=== PATIENT | female | born 1940 | race Caucasian/White ===

== ENCOUNTER 2020-07-07 10:43 | Outpatient (CLI) | payer MEDICARE ==
[2020-07-07 12:28] LABS: Anion Gap 14 mmol/L (10-20); BUN (Urea Nitrogen) 13 mg/dL (9.8-20.1); Calc. Creatinine Clearance 0 mL/min (70-130); Carbon Dioxide 26 mmol/L (23-31); Chloride 107 mmol/L (98-107); Glucose 99 mg/dL (83-110); Potassium 3.7 mmol/L (3.5-5.1); Sodium 143 mmol/L (136-145)
== END 2020-07-07 10:44 | disposition home or self-care (01) ==
LOC: LABBT 10:43
PROVIDERS: ATTEND Neurological Surgery
DX: Z01.812 Encounter for preprocedural laboratory examination (principal); M48.061 Spinal stenosis, lumbar region without neurogenic claudication; S33.100A Subluxation of unspecified lumbar vertebra, initial encounter
CPT/HCPCS: 80048

== ENCOUNTER 2020-07-10 10:26 | Observation (INO) | payer MEDICARE ==
[2020-07-07 12:18] LABS: Hemoglobin 12.5 g/dL (12.0-15.5); Mean Corpuscular HGB CONC 32.3 g/dL (32.0-36.0); Mean Corpuscular Hemoglobin 32.4 pg (27.0-33.0); Mean Corpuscular Volume 100.3 fl (81.6-98.3); Platelet Count 281 10x3/uL (150-450); RBC Distribution Width 12.6 % (11.5-14.5); Red Blood Cell (RBC) Count 3.86 10x6/uL (3.90-5.03); White Blood Cell (WBC) Count 8.9 10x3/uL (3.5-10.5)
[2020-07-07 12:43] LABS: Prothrombin Time 11.3 sec (9.5-12.1)
[2020-07-08 01:17] LABS: SARS-CoV-2 PCR by NAA Not Detected (NotDetected)
[2020-07-10] MEDS ORDERED: Bupivacaine PF 0.5% 30 ML VIAL ONE (11:53)
[2020-07-10] MEDS ORDERED: EPINEPHrine 1 MG/ML AMP ONE (11:53)
[2020-07-10] MEDS ORDERED: Thrombin 5000 UNITS/5 ML VIAL ONE ×2 (11:53→11:54)
[2020-07-10] MEDS ORDERED: SUGAMMADEX SODIUM 200 MG/2 ML VIAL ONE (11:59)
[2020-07-10] MEDS ORDERED: Fentanyl 100 MCG/2 ML VIAL ONE ×3 (12:14→15:52)
[2020-07-10] MEDS ORDERED: Ketamine 50 MG/ML (10ML VIAL) ONE (12:16)
[2020-07-10] MEDS ORDERED: Rocuronium Bromide 10 MG/ML (10ML VIAL) ONE (12:24)
[2020-07-10] MEDS ORDERED: ePHEDrine Sulfate 50 MG/10 ML VIAL ONE (12:24)
[2020-07-10] MEDS ORDERED: PROPOFOL 200 MG/20 ML VIAL ONE (12:24)
[2020-07-10] MEDS ORDERED: Lidocaine 1% PF 5 ML VIAL ONE (12:24)
[2020-07-10] MEDS ORDERED: Ondansetron PF 4 MG/2 ML Vial ONE (12:24)
[2020-07-10] MEDS ORDERED: Dexamethasone 20 MG/5 ML VIAL ONE (12:24)
[2020-07-10] MEDS ORDERED: Phenylephrine 10 MG/ML VIAL ONE (13:36)
[2020-07-10] MEDS ORDERED: HYDROmorphone 2 MG/ML VIAL SLOW IVP PRN (13:48)
[2020-07-10] MEDS ORDERED: Ondansetron HCl/PF 4 MG/2 ML Vial IVP PRN (13:48)
[2020-07-10] MEDS ORDERED: Promethazine HCl 25 MG/ML VIAL IM PRN (15:49)
[2020-07-10] MEDS ORDERED: Bisacodyl 10 MG SUPP PR PRN (15:49)
[2020-07-10] MEDS ORDERED: Acetaminophen/Codeine 30-300mg Tablet PO PRN (15:49)
[2020-07-10] MEDS ORDERED: HYDROcodone/Acetaminophen 7.5/325 mg Tablet PO PRN (15:49)
[2020-07-10] MEDS ORDERED: tiZANidine HCl 4 MG TAB PO PRN (15:49)
[2020-07-10] MEDS ORDERED: Promethazine 25 MG TAB PO PRN (15:49)
[2020-07-10] MEDS ORDERED: Milk Of Magnesia 30 ML UDCUP PO PRN (15:49)
[2020-07-10] MEDS ORDERED: Promethazine HCl 12.5 MG SUPP PR PRN (15:49)
[2020-07-10] MEDS ORDERED: Morphine 4 MG/ML VIAL SLOW IVP PRN (15:58)
[2020-07-10] MEDS ORDERED: Scopolamine 1.5 mg/72 hour Patch TD SCH (16:00)
[2020-07-10] MEDS: Sodium Chloride 0.9% 1,000 ML IV SCH (17:05)
[2020-07-10] MEDS: HYDROcodone/Acetaminophen 7.5/325 mg Tablet PO PRN ×2 (17:21→21:14)
[2020-07-10] MEDS: Ondansetron PF 4 MG/2 ML Vial IVP PRN ×2 (17:58→23:00)
[2020-07-10 18:11] VITALS: BMI 24.7
[2020-07-10] MEDS: Acetaminophen/Codeine 30-300mg Tablet PO PRN (18:46)
[2020-07-10] MEDS: CEFAZOLIN 2 GM in Premix Bag 1 BAG IVPB SCH (20:58)
[2020-07-11] MEDS: Sodium Chloride 0.9% 1,000 ML IV SCH ×2 (04:10→14:52)
[2020-07-11] MEDS: CEFAZOLIN 2 GM in Premix Bag 1 BAG IVPB SCH ×3 (04:10→20:58)
[2020-07-11] MEDS: HYDROcodone/Acetaminophen 7.5/325 mg Tablet PO PRN ×4 (04:28→22:42)
[2020-07-11 06:24] LABS: #Basophils 0.1 thou/uL (0.0-0.2); #Lymphocytes 1.5 thou/uL (1.20-3.40); #Monocytes 0.8 thou/uL (0.11-0.59); #Neutrophils 14.7 thou/uL (1.40-6.50); %Basophils 0.6 % (0.0-1.0); %Lymphocytes 8.8 % (21.0-51.0); %Monocytes 4.5 % (0.0-10.0); %Neutrophils 86.1 % (42.0-75.0); Hemoglobin 9.3 g/dL (12.0-16.0); Mean Corpuscular HGB CONC 33.2 g/dL (32.0-36.0); Mean Corpuscular Hemoglobin 34.5 pg (27.0-31.0); Mean Platelet Volume 8.6 fL (7.4-10.4); Platelet Count 234 thou/uL (130-400); RBC Distribution Width 11.3 % (11.5-14.5); Red Blood Cell (RBC) Count 2.68 mill/uL (4.20-5.40); White Blood Cell (WBC) Count 17.1 thou/uL (4.8-10.8)
[2020-07-11] MEDS: Losartan 25 MG TAB PO SCH (08:37)
[2020-07-11] MEDS: Ondansetron ODT 4 MG TAB PO PRN (14:58)
[2020-07-12] MEDS: CEFAZOLIN 2 GM in Premix Bag 1 BAG IVPB SCH ×2 (04:15→11:59)
[2020-07-12] MEDS: Ondansetron PF 4 MG/2 ML Vial IVP PRN (04:25)
[2020-07-12 06:09] LABS: #Eosinphils 0.1 thou/uL (0.0-0.7); #Lymphocytes 3.1 thou/uL (1.20-3.40); #Neutrophils 11.6 thou/uL (1.40-6.50); %Basophils 0.2 % (0.0-1.0); %Eosinophils 0.8 % (0.0-10.0); %Lymphocytes 19.6 % (21.0-51.0); %Monocytes 6.1 % (0.0-10.0); %Neutrophils 73.4 % (42.0-75.0); Hemoglobin 8.6 g/dL (12.0-16.0); Mean Corpuscular HGB CONC 33.3 g/dL (32.0-36.0); Mean Platelet Volume 8.1 fL (7.4-10.4); Platelet Count 238 thou/uL (130-400); RBC Distribution Width 11.4 % (11.5-14.5); Red Blood Cell (RBC) Count 2.46 mill/uL (4.20-5.40); White Blood Cell (WBC) Count 15.8 thou/uL (4.8-10.8)
[2020-07-12 06:34] LABS: Anion Gap 10 mmol/L (10-20); Calc. Creatinine Clearance 60 mL/min (70-130); Carbon Dioxide 28 mmol/L (23-31); Chloride 103 mmol/L (98-107); Glucose 100 mg/dL (83-110); Potassium 3.2 mmol/L (3.5-5.1); Sodium 138 mmol/L (136-145)
[2020-07-12 07:30] LABS: BUN (Urea Nitrogen) 11 mg/dL (9.8-20.1)
[2020-07-12] MEDS: Losartan 25 MG TAB PO SCH (08:30)
[2020-07-12] MEDS: Sodium Chloride 0.9% 1,000 ML IV SCH ×2 (09:50→22:02)
[2020-07-12] MEDS: Acetaminophen/Codeine 30-300mg Tablet PO PRN (14:48)
[2020-07-12] MEDS: Ondansetron ODT 4 MG TAB PO PRN ×2 (14:49→22:06)
[2020-07-12] MEDS ORDERED: Potassium Chloride 20 MEQ TAB PO SCH (15:00)
[2020-07-13 08:16] VITALS: BP 127/69; TEMP 98.2
[2020-07-13] MEDS: Ondansetron ODT 4 MG TAB PO PRN (08:46)
[2020-07-13] MEDS: Acetaminophen/Codeine 30-300mg Tablet PO PRN (08:46)
[2020-07-13] MEDS: Losartan 25 MG TAB PO SCH (08:47)
== END 2020-07-13 11:09 | disposition home or self-care (01) ==
LOC: SDC 10:26 → SURG A 15:49
PROVIDERS: ADMIT Neurological Surgery; ATTEND Neurological Surgery
PROC: 01NB0ZZ Release Lumbar Nerve, Open Approach (ICD-10-PCS; principal; 2020-07-10)
DX: M48.062 Spinal stenosis, lumbar region with neurogenic claudication (principal); M43.16 Spondylolisthesis, lumbar region; M99.23 Subluxation stenosis of neural canal of lumbar region; D62 Acute posthemorrhagic anemia; E87.6 Hypokalemia; I10 Essential (primary) hypertension; M19.90 Unspecified osteoarthritis, unspecified site; Z79.82 Long term (current) use of aspirin; Z79.899 Other long term (current) drug therapy; Z88.2 Allergy status to sulfonamides; Z90.710 Acquired absence of both cervix and uterus
CPT/HCPCS: 63047; 63048 ×3; 76000; 80048; 85025 ×2; 85027; 85610; 85730; 86850; 86900; 86901; 96365; 96375; 96376 ×3; 97110; 97116 ×3; 97139 ×3; G0378 ×4; U0003; U0005; 36415; 87635; J0171; J0690; J1100; J2270; J2370; J2405; J2704; J3010; J3370; J3490; Q0162; Q0169; S0020